=== PATIENT | male | born 1950 | race Caucasian/White ===

== ENCOUNTER 2017-02-05 07:36 | Emergency (ER) | payer SELFPAY ==
[~2017-02-05] VITALS: Ht 180.3 cm; Wt 80.3 kg
[~2017-02-05 07:36] MED LIST: ASPI325T47 PO
[2017-02-05 08:40] VITALS: BP 165/84
== END 2017-02-05 09:54 | disposition home or self-care (01) ==
LOC: ER 07:36
DX: I10 Essential (primary) hypertension (principal); E78.5 Hyperlipidemia, unspecified; F17.210 Nicotine dependence, cigarettes, uncomplicated; F12.10 Cannabis abuse, uncomplicated; Z86.73 Personal history of transient ischemic attack (TIA), and cerebral infarction without residual deficits
CPT/HCPCS: 73630

== ENCOUNTER 2018-08-02 13:34 | Emergency (ER) | payer OTHER ==
[~2018-08-02] VITALS: Ht 180.3 cm; Wt 81.6 kg
[~2018-08-02 13:34] MED LIST changes: +ASPI-123 PO; -ASPI325T47 PO
[2018-08-02] MEDS ORDERED: cloNIDine HCL 0.1 MG TAB ONE (14:00)
[2018-08-02] MEDS ORDERED: cloNIDine HCL 0.1 MG TAB PO ONE (14:15)
[2018-08-02 14:48] VITALS: BP 176/84
== END 2018-08-02 14:51 | disposition home or self-care (01) ==
LOC: EDBD 13:34 → ER 13:34
DX: S51.812A Laceration without foreign body of left forearm, initial encounter (principal); I10 Essential (primary) hypertension; E78.5 Hyperlipidemia, unspecified; F17.210 Nicotine dependence, cigarettes, uncomplicated; F12.90 Cannabis use, unspecified, uncomplicated; Z86.73 Personal history of transient ischemic attack (TIA), and cerebral infarction without residual deficits; Z79.82 Long term (current) use of aspirin; Y07.02 Wife, perpetrator of maltreatment and neglect; Y93.89 Activity, other specified; Y99.8 Other external cause status; Y92.89 Other specified places as the place of occurrence of the external cause

== ENCOUNTER 2019-06-01 11:13 | Inpatient (IN) | payer OTHER ==
[~2019-06-01] VITALS: Ht 180.3 cm; Wt 56.1 kg
[2019-06-01] MEDS ORDERED: SODIUM CHLORIDE 0.9% 1,000 ML IVB ONE (11:34)
[2019-06-01 12:08] LABS: Basophils # (auto) 0 10 ^3/uL (0-0.2); Basophils % (auto) 0.4 % (0.0-2.0); Eosinophils # (auto) 0 10 ^3/uL (0-0.8); Eosinophils % (auto) 0.2 % (0.0-7.0); Hematocrit 44.2 % (41.0-53.0); Hemoglobin 15.2 g/dL (13.5-17.5); Lymphocytes % (auto) 9.3 % (10.0-50.0); Mean Corpuscular Hemoglobin 30.8 pg (28.0-32.0); Mean Corpuscular Hgb Conc. 34.3 g/dL (32.0-36.0); Mean Corpuscular Volume 89.6 fL (80.0-100.0); Monocytes % (auto) 8.9 % (0.0-12.0); Neutrophils % (auto) 81.2 % (37.0-80.0); Platelet Count (auto) 161 10^3/uL (140-450); Red Blood Cells 4.93 10^6/uL (4.5-5.90); Red Cell Distribution Width 14.2 % (11.8-14.3); White Blood Cell 11.1 10^3/uL (4.4-10.8)
[2019-06-01 12:29] LABS: Albumin 3.9 g/dL (3.4-5.0); Anion Gap 7 (5-15); Blood Urea Nitrogen 17 mg/dL (7-18); Calcium 8.8 mg/dL (8.5-10.1); Carbon Dioxide 24 mmol/L (21-32); Chloride 108 mmol/L (98-107); Glucose 107 mg/dL (74-106); Magnesium 2.1 mg/dL (1.6-2.6); Potassium 4.1 mmol/L (3.5-5.1); Sodium 139 mmol/L (136-145)
[2019-06-01 12:33] LABS: Alanine Aminotransferase 126 U/L (16-61); Alkaline Phosphatase 69 U/L (45-117); Aspartate Aminotransferase 135 U/L (15-37); BUN/Creatinine Ratio 13.5; Bilirubin, Total 0.8 mg/dL (0.2-1.0); GFR African American 73 mL/min; GFR Non-African American 60 mL/min; Total Protein 7.1 g/dL (6.4-8.2)
[2019-06-01 12:37] LABS: Blood Alcohol < 3.0 mg/dL (0-5)
[2019-06-01] MEDS ORDERED: THIAMINE 100mg/ml INJ (200mg/2ml VIAL) IV ONE (13:15)
[2019-06-01 13:40] LABS: INR 1.05 (0.9-1.15); Partial Thromboplastin Time 25.4 sec (23.64-32.05)
[2019-06-01] MEDS ORDERED: LACTULOSE 20Gm/30ML SOLN PO PRN (14:00)
[2019-06-01] MEDS ORDERED: MORPHINE SULF INJ 2 MG/ML SYRINGE 1ML IV PRN (14:00)
[2019-06-01] MEDS ORDERED: ACETAMINOPHEN 500 MG TAB PO PRN (14:00)
[2019-06-01] MEDS ORDERED: ALBUTEROL SULF 2.5 MG/0.5ML(0.5%) NEB SOLN NEB PRN (14:00)
[2019-06-01] MEDS ORDERED: PROMETHAZINE HCL 25 MG/ML 1ML IV PRN (14:00)
[2019-06-01] MEDS ORDERED: NITROGLYCERIN 0.4 MG SL TAB SL PRN (14:00)
[2019-06-01 14:04] LABS: Alcohol, Urine < 3.0 mg/dL (0-5); Amphetamine Screen, Urine NEGATIVE (NEGATIVE); Barbiturate Scree,Urine NEGATIVE (NEGATIVE); Benzodiazephine Screen, Urine NEGATIVE (NEGATIVE); Cocaine Screen, Urine NEGATIVE (NEGATIVE); Opiate Scree,Urine NEGATIVE (NEGATIVE); Phencyclidine Screen, Urine NEGATIVE (NEGATIVE)
[2019-06-01 14:08] LABS: Cannabinoid Screen, Urine POSITIVE (NEGATIVE)
[2019-06-01] MEDS: SODIUM CHLORIDE 0.9% 1,000 ML IV SCH ×2 (14:21→23:58)
[2019-06-01] MEDS: MORPHINE SULF INJ 2 MG/ML SYRINGE 1ML IV PRN ×2 (14:25→18:35)
[2019-06-01] MEDS: traMADol HCL 50 MG TAB PO PRN (17:39)
[2019-06-01] MEDS ORDERED: LISI40TA PO (17:48)
[2019-06-01] MEDS ORDERED: METO-158 PO (17:48)
[2019-06-01] MEDS ORDERED: PRAV20TA3 GT (17:48)
[2019-06-01] MEDS ORDERED: CLOP75TA41 PO (17:48)
[2019-06-01] MEDS ORDERED: CYAN1TAB14 PO (17:48)
[2019-06-01 18:09] LABS: Hematocrit 43.9 % (41.0-53.0); Hemoglobin 15.1 g/dL (13.5-17.5)
[2019-06-01] MEDS ORDERED: LABETALOL HCL 5 MG/ML 4ML SYRINGE IV PRN (18:45)
[2019-06-01] MEDS ORDERED: LABETALOL HCL 5 MG/ML 4ML SYRINGE IV ONE (18:45)
[2019-06-01] MEDS ORDERED: hydrALAZINE HCL 20 MG/ML VL IV ONE (18:45)
[2019-06-01] MEDS ORDERED: LABETALOL HCL 5 MG/ML ML 20ML VIAL IV PRN (19:45)
[2019-06-01] MEDS: HYDROmorphone HCL 2 MG/ML VL IV PRN (20:32)
[2019-06-01 20:44] LABS: Hematocrit 42.1 % (41.0-53.0); Hemoglobin 14.5 g/dL (13.5-17.5)
[2019-06-01] MEDS: FAMOTIDINE 20 MG TAB PO SCH (21:25)
[2019-06-01] MEDS: TEMAZEPAM 15 MG CAP PO PRN (21:26)
[2019-06-01 22:00] VITALS: BP 150/94
[2019-06-02] VITALS (7 sets, daily range): BP systolic 129–161; BP diastolic 55–94
[2019-06-02 01:56] LABS: Hematocrit 42.9 % (41.0-53.0); Hemoglobin 14.2 g/dL (13.5-17.5)
[2019-06-02] MEDS: HYDROmorphone HCL 2 MG/ML VL IV PRN ×4 (04:39→21:18)
[2019-06-02] MEDS: FAMOTIDINE 20 MG TAB PO SCH ×2 (09:27→21:18)
[2019-06-02] MEDS: SODIUM CHLORIDE 0.9% 1,000 ML IV SCH ×2 (09:58→21:17)
[2019-06-02] MEDS: hydrALAZINE HCL 20 MG/ML VL IV PRN (18:47)
[2019-06-02] MEDS: TEMAZEPAM 15 MG CAP PO PRN (21:18)
[2019-06-03] MEDS: hydrALAZINE HCL 20 MG/ML VL IV PRN (05:10)
[2019-06-03] MEDS: traMADol HCL 50 MG TAB PO PRN (05:10)
[2019-06-03] MEDS: SODIUM CHLORIDE 0.9% 1,000 ML IV SCH ×2 (05:11→16:04)
[2019-06-03 05:42] VITALS: BP 157/81
[2019-06-03 06:15] VITALS: BP 142/77
[2019-06-03 06:49] LABS: Basophils # (auto) 0.1 10 ^3/uL (0-0.2); Basophils % (auto) 0.7 % (0.0-2.0); Eosinophils # (auto) 0.1 10 ^3/uL (0-0.8); Eosinophils % (auto) 1.5 % (0.0-7.0); Hematocrit 42.1 % (41.0-53.0); Hemoglobin 14.4 g/dL (13.5-17.5); Lymphocytes # (auto) 1.5 10 ^3/uL (0.4-5.4); Lymphocytes % (auto) 17.6 % (10.0-50.0); Mean Corpuscular Hgb Conc. 34.3 g/dL (32.0-36.0); Mean Corpuscular Volume 90.5 fL (80.0-100.0); Monocytes # (auto) 0.9 10 ^3/uL (0-1.3); Monocytes % (auto) 10.8 % (0.0-12.0); Neutrophils # (auto) 5.8 10 ^3/uL (1.6-8.6); Neutrophils % (auto) 69.4 % (37.0-80.0); Platelet Count (auto) 157 10^3/uL (140-450); Red Blood Cells 4.65 10^6/uL (4.5-5.90); Red Cell Distribution Width 14.2 % (11.8-14.3); White Blood Cell 8.4 10^3/uL (4.4-10.8)
[2019-06-03 07:04] LABS: Calcium 8.8 mg/dL (8.5-10.1); Potassium 3.7 mmol/L (3.5-5.1)
[2019-06-03 07:07] LABS: BUN/Creatinine Ratio 13.5; Phosphorus 2.6 mg/dL (2.5-4.90)
[2019-06-03 09:00] VITALS: BP 122/69
[2019-06-03] MEDS: FAMOTIDINE 20 MG TAB PO SCH ×2 (10:54→21:12)
[2019-06-03] MEDS: HYDROmorphone HCL 2 MG/ML VL IV PRN (10:55)
[2019-06-03 13:00] VITALS: BP 119/69
[2019-06-03] MEDS ORDERED: HYDROmorphone HCL 2 MG/ML VL IV ONE (13:15)
[2019-06-03] MEDS ORDERED: SODIUM CHLORIDE 0.9% 1,000 ML IV ONE (13:15)
[2019-06-03] MEDS ORDERED: DIGOXIN (250MCG/ML) 2 ML AMPULE IV ONE (14:30)
[2019-06-03] MEDS ORDERED: HYDROcodone-ACET 10/325MG TAB PO PRN (16:00)
[2019-06-03] MEDS ORDERED: ACETAMINOPHEN 500 MG TAB PO PRN (16:15)
[2019-06-03 17:04] VITALS: BP 126/68
[2019-06-03] MEDS: HYDROcodone-ACET 10/325MG TAB PO PRN (17:20)
[2019-06-03] MEDS ORDERED: LACTULOSE 20Gm/30ML SOLN PO PRN (18:30)
[2019-06-03] MEDS: TEMAZEPAM 15 MG CAP PO PRN (21:12)
[2019-06-03 21:25] VITALS: BP 129/73
[2019-06-04] VITALS (9 sets, daily range): BP systolic 113–162; BP diastolic 75–89
[2019-06-04] MEDS: SODIUM CHLORIDE 0.9% 1,000 ML IV SCH ×3 (02:28→21:58)
[2019-06-04] MEDS: HYDROmorphone HCL 2 MG/ML VL IV PRN (04:22)
[2019-06-04] MEDS: FAMOTIDINE 20 MG TAB PO SCH ×2 (09:13→21:54)
[2019-06-04] MEDS: HYDROcodone-ACET 10/325MG TAB PO PRN ×2 (09:20→18:43)
[2019-06-04] MEDS ORDERED: HYDROmorphone HCL 2 MG/ML VL IV PRN (11:00)
[2019-06-04] MEDS ORDERED: APIXABAN 5 MG TAB PO SCH (12:00)
[2019-06-04] MEDS: APIXABAN 5 MG TAB PO SCH ×2 (12:43→21:54)
[2019-06-04] MEDS: hydrALAZINE HCL 20 MG/ML VL IV PRN (21:56)
[2019-06-05] VITALS (7 sets, daily range): BP systolic 117–162; BP diastolic 61–89
[2019-06-05] MEDS: SODIUM CHLORIDE 0.9% 1,000 ML IV SCH ×2 (07:58→17:58)
[2019-06-05] MEDS: APIXABAN 5 MG TAB PO SCH (09:40)
[2019-06-05] MEDS: FAMOTIDINE 20 MG TAB PO SCH (09:40)
[2019-06-05] MEDS: HYDROcodone-ACET 10/325MG TAB PO PRN (09:53)
[2019-06-05] MEDS ORDERED: METOPROLOL TARTRATE 25 MG TAB PO SCH (10:00)
== END 2019-06-05 18:18 | disposition home health service (06) | DRG 199 ==
LOC: ER 11:13 → EDBD 11:13 → TELE 11:14 → TELE-EAST 17:09
PROVIDERS: ADMIT Internal Medicine; ATTEND Internal Medicine
DX: J93.9 Pneumothorax, unspecified (principal); J96.01 Acute respiratory failure with hypoxia; S22.41XA Multiple fractures of ribs, right side, initial encounter for closed fracture; J94.2 Hemothorax; R79.89 Other specified abnormal findings of blood chemistry; J44.9 Chronic obstructive pulmonary disease, unspecified; F10.20 Alcohol dependence, uncomplicated; I48.0 Paroxysmal atrial fibrillation; W18.39XA Other fall on same level, initial encounter; Y93.89 Activity, other specified; Y92.89 Other specified places as the place of occurrence of the external cause; Y99.8 Other external cause status
CPT/HCPCS: 36415; 70450; 70480; 70486; 71045; 71250; 72125; 76705; 80048; 80053; 80307; 80320; 83735; 84100; 85014; 85018; 85025; 85610; 85730; 93306; 96374; 97116; 97163; 97530; 99291; G0378

== ENCOUNTER 2022-01-07 07:23 | Inpatient (IN) | payer OTHER ==
[~2022-01-07] VITALS: Ht 185.4 cm; Wt 89.3 kg
[~2022-01-07 07:23] MED LIST changes: -ASPI-123 PO; +CYAN1TAB14 PO; +LISI40TA11 PO; +PRAV20TA3 GT
[2022-01-07] MEDS ORDERED: IOHEXOL 350 MG/ML 100ML IJ ONE (07:44)
[2022-01-07 08:31] LABS: Basophils # (auto) 0.1 10 ^3/uL (0-0.2); Basophils % (auto) 0.8 % (0.0-2.0); Eosinophils # (auto) 0.3 10 ^3/uL (0-0.8); Eosinophils % (auto) 4.1 % (0.0-7.0); Hematocrit 50.8 % (41.0-53.0); Hemoglobin 16.9 g/dL (13.5-17.5); Lymphocytes % (auto) 29.4 % (10.0-50.0); Mean Corpuscular Hemoglobin 31.4 pg (28.0-32.0); Mean Corpuscular Hgb Conc. 33.3 g/dL (32.0-36.0); Mean Corpuscular Volume 94.5 fL (80.0-100.0); Monocytes # (auto) 0.6 10 ^3/uL (0-1.3); Monocytes % (auto) 8.6 % (0.0-12.0); Neutrophils # (auto) 3.9 10 ^3/uL (1.6-8.6); Neutrophils % (auto) 57.1 % (37.0-80.0); Nucleated Red Blood Cells % 0.1 %; Red Blood Cells 5.38 10^6/uL (4.5-5.90); White Blood Cell 6.8 10^3/uL (4.4-10.8)
[2022-01-07 08:47] LABS: INR 0.96 (0.9-1.15); Partial Thromboplastin Time 25.4 sec (24.6-33.4)
[2022-01-07] MEDS ORDERED: LISINOPRIL 20 MG TAB PO ONE ×2 (09:45)
[2022-01-07] MEDS ORDERED: ASPirin 81 mg TAB PO ONE (09:45)
[2022-01-07 10:07] LABS: Albumin 3.8 g/dL (3.4-5.0); Calcium 8.6 mg/dL (8.5-10.1); Magnesium 2.3 mg/dL (1.6-2.6); Potassium 4.5 mmol/L (3.5-5.1)
[2022-01-07 10:10] LABS: BUN/Creatinine Ratio 11.8; Bilirubin, Total 0.5 mg/dL (0.2-1.0); Total Protein 6.4 g/dL (6.4-8.2)
[2022-01-07 10:30] LABS: Urine Bacteria NONE SEEN /hpf (None Seen); Urine Blood TRACE /uL (Negative); Urine Mucus FEW (None Seen); Urine WBC 2 /hpf (0 - 3)
[2022-01-07] MEDS ORDERED: ONDANSETRON HCL 4 MG/2 ML VIAL IV PRN (10:30)
[2022-01-07] MEDS ORDERED: HYDROmorphone HCL 2 MG/ML VL/or syr IV PRN (10:30)
[2022-01-07] MEDS ORDERED: ACETAMINOPHEN 325 MG TAB PO PRN (10:30)
[2022-01-07] MEDS ORDERED: DOCUSATE SOD 100 MG CAP PO PRN (10:30)
[2022-01-07] MEDS ORDERED: HYDROcodone-ACET 5/325MG TAB PO PRN (10:30)
[2022-01-07 10:45] LABS: Urine Specific Gravity > 1.050 (1.001-1.035)
[2022-01-07 11:10] LABS: Cholesterol 195 mg/dL (< 200); HDL Cholesterol 64 mg/dL (40-59); LDL Cholesterol 117 mg/dL (< 100); Triglycerides 113 mg/dL (< 150)
[2022-01-07] MEDS ORDERED: ATORVASTATIN 20 MG TAB PO ONE (11:15)
[2022-01-07] MEDS ORDERED: PRAVASTATIN SODIUM 20 MG TAB PO SCH (22:00)
[2022-01-07 22:41] VITALS: BP 165/96
[2022-01-07] MEDS: hydrALAZINE HCL 20 MG/ML VL IV PRN (22:43)
[2022-01-07] MEDS: APIXABAN 5 MG TAB PO SCH (22:43)
[2022-01-07 22:53] VITALS: BP 165/96
[2022-01-08] MEDS: hydrALAZINE HCL 20 MG/ML VL IV PRN (04:57)
[2022-01-08 05:00] VITALS: BP 175/84
[2022-01-08 09:00] VITALS: BP 124/64
[2022-01-08] MEDS: APIXABAN 5 MG TAB PO SCH ×2 (09:40→21:00)
[2022-01-08 17:00] VITALS: BP 133/76
[2022-01-08] MEDS ORDERED: LORazepam 2MG/ML-1ML VIAL IV PRN (17:15)
[2022-01-08] MEDS: ATORVASTATIN 20 MG TAB PO SCH (21:00)
[2022-01-08 22:00] VITALS: BP 140/84
[2022-01-09 05:00] VITALS: BP 142/87
[2022-01-09 08:00] VITALS: BP 175/84
[2022-01-09 08:39] VITALS: BP 130/57
[2022-01-09] MEDS: APIXABAN 5 MG TAB PO SCH (08:47)
[2022-01-09] MEDS ORDERED: hydrALAZINE HCL 20 MG/ML VL IV PRN (10:00)
[2022-01-09] MEDS ORDERED: NICOTINE 14 MG/24HR TOPICAL PATCH TD ONE (10:00)
[2022-01-09] MEDS: LISINOPRIL 10 MG TAB PO SCH (12:28)
[2022-01-09] MEDS: NICOTINE 14 MG/24HR TOPICAL PATCH TD SCH (12:28)
[2022-01-09 13:00] VITALS: BP 146/93
[2022-01-09 16:59] VITALS: BP 119/79
[2022-01-09] MEDS: ATORVASTATIN 20 MG TAB PO SCH (21:36)
[2022-01-09] MEDS: ENOXAPARIN SOD 100 MG/1 ML SYRINGE SC SCH (21:36)
[2022-01-09 22:00] VITALS: BP 107/54
[2022-01-09] MEDS: HALOPERIDOL 1 MG TAB PO SCH (22:00)
[2022-01-10 05:00] VITALS: BP 126/88
[2022-01-10] MEDS: LISINOPRIL 10 MG TAB PO SCH (09:01)
[2022-01-10] MEDS: HALOPERIDOL 1 MG TAB PO SCH ×2 (09:02→21:05)
[2022-01-10] MEDS: ENOXAPARIN SOD 100 MG/1 ML SYRINGE SC SCH ×2 (09:06→21:05)
[2022-01-10] MEDS: NICOTINE 14 MG/24HR TOPICAL PATCH TD SCH (09:06)
[2022-01-10 09:20] VITALS: BP 117/69
[2022-01-10 13:00] VITALS: BP 160/88
[2022-01-10 14:15] LABS: Basophils # (auto) 0 10 ^3/uL (0-0.2); Basophils % (auto) 0.6 % (0.0-2.0); Eosinophils # (auto) 0.3 10 ^3/uL (0-0.8); Eosinophils % (auto) 4.3 % (0.0-7.0); Hemoglobin 16.6 g/dL (13.5-17.5); Lymphocytes # (auto) 1.8 10 ^3/uL (0.4-5.4); Lymphocytes % (auto) 25.2 % (10.0-50.0); Mean Corpuscular Hemoglobin 31.8 pg (28.0-32.0); Mean Corpuscular Hgb Conc. 33.8 g/dL (32.0-36.0); Mean Corpuscular Volume 94.1 fL (80.0-100.0); Monocytes # (auto) 0.5 10 ^3/uL (0-1.3); Monocytes % (auto) 7.6 % (0.0-12.0); Neutrophils # (auto) 4.3 10 ^3/uL (1.6-8.6); Neutrophils % (auto) 62.3 % (37.0-80.0); Red Blood Cells 5.21 10^6/uL (4.5-5.90); Red Cell Distribution Width 14.1 % (11.8-14.3)
[2022-01-10 14:30] LABS: INR 1.09 (0.9-1.15)
[2022-01-10 17:24] VITALS: BP 131/99
[2022-01-10] MEDS: ATORVASTATIN 20 MG TAB PO SCH (20:59)
[2022-01-10 22:00] VITALS: BP 131/74
[2022-01-11] VITALS (8 sets, daily range): BP systolic 119–151; BP diastolic 64–88
[2022-01-11 07:31] LABS: Potassium 4.9 mmol/L (3.5-5.1)
[2022-01-11] MEDS ORDERED: MIDAZOLAM HCL 2MG/2ML 2ml VIAL (1mg/ml) IV ONE (08:45)
[2022-01-11] MEDS ORDERED: fentaNYL CITRATE 100 MCG/2 ML VL IV ONE (08:45)
[2022-01-11] MEDS ORDERED: LIDOCAINE VISCOUS 2% 15ML UD PO ONE (08:45)
[2022-01-11] MEDS ORDERED: diphenhdrAMINE HCL 50 MG/1 ML VL IV ONE (08:45)
[2022-01-11] MEDS: HALOPERIDOL 1 MG TAB PO SCH (11:03)
[2022-01-11] MEDS: LISINOPRIL 10 MG TAB PO SCH (11:05)
[2022-01-11] MEDS: NICOTINE 14 MG/24HR TOPICAL PATCH TD SCH (11:14)
[2022-01-11] MEDS: ENOXAPARIN SOD 100 MG/1 ML SYRINGE SC SCH (11:15)
[2022-01-11] MEDS ORDERED: ATOR20TA50 PO (14:39)
[2022-01-11] MEDS ORDERED: APIX5TAB PO (16:40)
[2022-01-13] MEDS ORDERED: TRAM-297 PO (12:01)
== END 2022-01-11 18:10 | disposition home or self-care (01) | DRG 65 ==
LOC: ER 07:23 → TELE 10:30 → TELE-WESTW 22:11
PROVIDERS: ADMIT Internal Medicine; ATTEND Internal Medicine
PROC: B24BZZ4 Ultrasonography of Heart with Aorta, Transesophageal (ICD-10-PCS; principal; 2022-01-11)
DX: I63.9 Cerebral infarction, unspecified (principal); G81.91 Hemiplegia, unspecified affecting right dominant side; I16.0 Hypertensive urgency; E78.5 Hyperlipidemia, unspecified; Z20.822 Contact with and (suspected) exposure to COVID-19; F17.210 Nicotine dependence, cigarettes, uncomplicated; F32.A Depression, unspecified; H91.90 Unspecified hearing loss, unspecified ear; I10 Essential (primary) hypertension; R47.01 Aphasia; R29.705 NIHSS score 5; Z79.01 Long term (current) use of anticoagulants; Z82.5 Family history of asthma and other chronic lower respiratory diseases
CPT/HCPCS: 36415; 70470; 70496; 70551; 71045; 80048; 80053; 80061; 81001; 83036; 83735; 83880; 84100; 84443; 84484; 85025; 85610; 85730; 86850; 86900; 86901; 87426; 93005; 93306; 93312; 93886; 96374; 99152; 99291; G0378; J2250

== ENCOUNTER → 2022-01-13 | Emergency (ER) | payer OTHER ==
[~2022-01-13] VITALS: Ht 180.3 cm; Wt 82.0 kg
[~2022-01-13] MED LIST changes: +APIX5TAB PO; +ATOR20TA50 PO; -PRAV20TA3 GT; +TRAM-297 PO
[2022-01-13 15:30] VITALS: BP 166/90
== END | disposition home or self-care (01) ==
LOC: ER 10:16
DX: S82.891A Other fracture of right lower leg, initial encounter for closed fracture (principal); F17.210 Nicotine dependence, cigarettes, uncomplicated; F12.90 Cannabis use, unspecified, uncomplicated; I10 Essential (primary) hypertension; Z86.73 Personal history of transient ischemic attack (TIA), and cerebral infarction without residual deficits; Z98.890 Other specified postprocedural states; W17.89XA Other fall from one level to another, initial encounter; Y93.89 Activity, other specified; Y92.89 Other specified places as the place of occurrence of the external cause; Y99.8 Other external cause status
CPT/HCPCS: 29515; 73610

== ENCOUNTER 2022-01-14 01:37 | Inpatient (IN) | payer OTHER ==
[~2022-01-14] VITALS: Ht 182.9 cm; Wt 76.2 kg
[2022-01-14 02:26] LABS: Basophils # (auto) 0.1 10 ^3/uL (0-0.2); Eosinophils # (auto) 0.3 10 ^3/uL (0-0.8); Eosinophils % (auto) 3.3 % (0.0-7.0); Hematocrit 42.9 % (41.0-53.0); Hemoglobin 14.5 g/dL (13.5-17.5); Lymphocytes # (auto) 1.4 10 ^3/uL (0.4-5.4); Lymphocytes % (auto) 16.1 % (10.0-50.0); Mean Corpuscular Hemoglobin 31.7 pg (28.0-32.0); Mean Corpuscular Hgb Conc. 33.7 g/dL (32.0-36.0); Mean Corpuscular Volume 94.1 fL (80.0-100.0); Monocytes # (auto) 0.9 10 ^3/uL (0-1.3); Monocytes % (auto) 10.3 % (0.0-12.0); Neutrophils # (auto) 6.1 10 ^3/uL (1.6-8.6); Neutrophils % (auto) 69.3 % (37.0-80.0); Nucleated Red Blood Cells % 0.1 %; Red Blood Cells 4.56 10^6/uL (4.5-5.90); White Blood Cell 8.8 10^3/uL (4.4-10.8)
[2022-01-14 02:45] LABS: Albumin 3.7 g/dL (3.4-5.0); Calcium 8.8 mg/dL (8.5-10.1); Potassium 4.2 mmol/L (3.5-5.1)
[2022-01-14 02:48] LABS: Bilirubin, Total 0.5 mg/dL (0.2-1.0); Total Protein 6.3 g/dL (6.4-8.2)
[2022-01-14 05:21] LABS: Urine Bacteria NONE SEEN /hpf (None Seen); Urine Blood 3+ /uL (Negative); Urine Budding Yeast FEW /hpf (None Seen); Urine Mucus FEW (None Seen); Urine Specific Gravity 1.025 (1.001-1.035); Urine WBC 39 /hpf (0 - 3)
[2022-01-14] MEDS ORDERED: ACETAMINOPHEN 325 MG TAB PO PRN (06:15)
[2022-01-14] MEDS ORDERED: hydrALAZINE HCL 20 MG/ML VL IV PRN (06:15)
[2022-01-14] MEDS ORDERED: ONDANSETRON HCL 4 MG/2 ML VIAL IV PRN (06:15)
[2022-01-14] MEDS ORDERED: SODIUM CHLORIDE 0.9% 1,000 ML IV SCH (06:15)
[2022-01-14] MEDS ORDERED: DOCUSATE SOD 100 MG CAP PO PRN (06:15)
[2022-01-14] MEDS ORDERED: HYDROcodone-ACET 5/325MG TAB PO PRN (06:15)
[2022-01-14] MEDS ORDERED: NITROGLYCERIN 0.4 MG SL TAB SL PRN (06:45)
[2022-01-14] MEDS ORDERED: MORPHINE SULFATE INJ 2 MG/ml SYRG IV PRN (06:45)
[2022-01-14 06:51] LABS: Basophils # (auto) 0.1 10 ^3/uL (0-0.2); Basophils % (auto) 0.7 % (0.0-2.0); Eosinophils # (auto) 0.2 10 ^3/uL (0-0.8); Eosinophils % (auto) 2.8 % (0.0-7.0); Hemoglobin 15.2 g/dL (13.5-17.5); Lymphocytes # (auto) 1.3 10 ^3/uL (0.4-5.4); Lymphocytes % (auto) 15.8 % (10.0-50.0); Mean Corpuscular Hgb Conc. 34.5 g/dL (32.0-36.0); Mean Corpuscular Volume 92.8 fL (80.0-100.0); Monocytes % (auto) 11.5 % (0.0-12.0); Neutrophils # (auto) 5.9 10 ^3/uL (1.6-8.6); Neutrophils % (auto) 69.2 % (37.0-80.0); Nucleated Red Blood Cells % 0.1 %; Red Blood Cells 4.74 10^6/uL (4.5-5.90); Red Cell Distribution Width 13.9 % (11.8-14.3); White Blood Cell 8.5 10^3/uL (4.4-10.8)
[2022-01-14 07:04] LABS: Alcohol, Urine 3.8 mg/dL (0-10); Amphetamine Screen, Urine NEGATIVE (NEGATIVE); Barbiturate Scree,Urine NEGATIVE (NEGATIVE); Benzodiazephine Screen, Urine NEGATIVE (NEGATIVE); Cocaine Screen, Urine NEGATIVE (NEGATIVE); Opiate Scree,Urine NEGATIVE (NEGATIVE); Phencyclidine Screen, Urine NEGATIVE (NEGATIVE)
[2022-01-14 07:05] LABS: Cannabinoid Screen, Urine NEGATIVE (NEGATIVE)
[2022-01-14 07:14] LABS: Calcium 8.8 mg/dL (8.5-10.1); Potassium 3.9 mmol/L (3.5-5.1)
[2022-01-14 07:20] LABS: Albumin 3.5 g/dL (3.4-5.0); BUN/Creatinine Ratio 16.4; Bilirubin, Total 0.8 mg/dL (0.2-1.0); Total Protein 6.4 g/dL (6.4-8.2)
[2022-01-14] MEDS: cefTRIAXone 1GM/50ML D5W 50 ML IV SCH (09:26)
[2022-01-14] MEDS ORDERED: amLODIPine BESYLATE 5 MG TAB PO SCH (10:00)
[2022-01-14] MEDS ORDERED: FAMOTIDINE (10MG/ML) 2ML VL IV SCH (10:00)
[2022-01-14] MEDS: ASPirin 81 mg TAB PO SCH (10:36)
[2022-01-14] MEDS ORDERED: CLOPIDOGREL BISULFATE 75 MG TAB PO ONE (14:30)
[2022-01-14] MEDS ORDERED: ATORVASTATIN 20 MG TAB PO SCH (22:00)
[2022-01-14] MEDS: APIXABAN 5 MG TAB PO SCH (22:42)
[2022-01-14] MEDS: ATORVASTATIN 20 MG TAB PO SCH (22:48)
[2022-01-15 06:06] LABS: RPR Non Reactive (Non Reactive)
[2022-01-15 07:54] LABS: Basophils # (auto) 0 10 ^3/uL (0-0.2); Basophils % (auto) 0.7 % (0.0-2.0); Eosinophils # (auto) 0.2 10 ^3/uL (0-0.8); Eosinophils % (auto) 2.7 % (0.0-7.0); Hematocrit 43.4 % (41.0-53.0); Hemoglobin 14.7 g/dL (13.5-17.5); Lymphocytes # (auto) 1.3 10 ^3/uL (0.4-5.4); Mean Corpuscular Hemoglobin 31.7 pg (28.0-32.0); Mean Corpuscular Hgb Conc. 33.9 g/dL (32.0-36.0); Mean Corpuscular Volume 93.5 fL (80.0-100.0); Monocytes # (auto) 0.8 10 ^3/uL (0-1.3); Neutrophils # (auto) 5.1 10 ^3/uL (1.6-8.6); Neutrophils % (auto) 68.6 % (37.0-80.0); Red Blood Cells 4.65 10^6/uL (4.5-5.90); Red Cell Distribution Width 13.8 % (11.8-14.3); White Blood Cell 7.4 10^3/uL (4.4-10.8)
[2022-01-15 08:20] LABS: Albumin 3.5 g/dL (3.4-5.0); Calcium 8.9 mg/dL (8.5-10.1); Potassium 4.2 mmol/L (3.5-5.1)
[2022-01-15 08:24] LABS: BUN/Creatinine Ratio 14.7; Bilirubin, Total 1.1 mg/dL (0.2-1.0); Total Protein 6.7 g/dL (6.4-8.2)
[2022-01-15] MEDS: cefTRIAXone 1GM/50ML D5W 50 ML IV SCH (09:22)
[2022-01-15] MEDS ORDERED: ENOXAPARIN SOD 40 MG/0.4 ML SYRINGE SC SCH (10:00)
[2022-01-15] MEDS ORDERED: CLOPIDOGREL BISULFATE 75 MG TAB PO SCH (10:00)
[2022-01-15] MEDS: ASPirin 81 mg TAB PO SCH (10:00)
[2022-01-15] MEDS: APIXABAN 5 MG TAB PO SCH ×2 (12:07→22:36)
[2022-01-15] MEDS: ATORVASTATIN 20 MG TAB PO SCH (22:36)
[2022-01-16] VITALS (8 sets, daily range): BP systolic 120–153; BP diastolic 69–94
[2022-01-16] MEDS: APIXABAN 5 MG TAB PO SCH ×2 (10:13→21:57)
[2022-01-16] MEDS: cefTRIAXone 1GM/50ML D5W 50 ML IV SCH (10:13)
[2022-01-16] MEDS: ASPirin 81 mg TAB PO SCH (10:13)
[2022-01-16] MEDS: ATORVASTATIN 20 MG TAB PO SCH (21:57)
[2022-01-16] MEDS ORDERED: traZODone HCL 50 MG TAB PO SCH (22:00)
[2022-01-17 05:00] VITALS: BP 142/86
[2022-01-17] MEDS: cefTRIAXone 1GM/50ML D5W 50 ML IV SCH (08:29)
[2022-01-17 08:30] VITALS: BP 133/87
[2022-01-17 08:34] VITALS: BP 133/87
[2022-01-17] MEDS: ASPirin 81 mg TAB PO SCH (09:11)
[2022-01-17] MEDS: APIXABAN 5 MG TAB PO SCH ×2 (09:11→21:15)
[2022-01-17 12:31] VITALS: BP 135/91
[2022-01-17 12:55] LABS: Free T4 (Free Thyroxine) 0.73 ng/dL (0.89-1.76)
[2022-01-17 12:56] LABS: Folate (Folic Acid) 5.35 ng/mL (5.38-24)
[2022-01-17 16:32] VITALS: BP 135/84
[2022-01-17] MEDS: ATORVASTATIN 20 MG TAB PO SCH (21:15)
[2022-01-17] MEDS: CIPROFLOXACIN HCL 500 MG TAB PO SCH (21:15)
[2022-01-17 22:00] VITALS: BP 120/76
[2022-01-17] MEDS ORDERED: LORazepam 2MG/ML-1ML VIAL IV PRN (22:45)
[2022-01-17 23:33] LABS: Folate (Folic Acid) 11.09 ng/mL (5.38-24)
[2022-01-17] MEDS ORDERED: CYANOCOBALAMIN (B-12) 1000 MCG/1 ML VIAL IM ONE (23:45)
[2022-01-18 05:00] VITALS: BP 113/71
[2022-01-18 07:18] LABS: Basophils # (auto) 0 10 ^3/uL (0-0.2); Basophils % (auto) 0.7 % (0.0-2.0); Eosinophils # (auto) 0.2 10 ^3/uL (0-0.8); Eosinophils % (auto) 2.4 % (0.0-7.0); Hematocrit 47.6 % (41.0-53.0); Hemoglobin 16.1 g/dL (13.5-17.5); Lymphocytes # (auto) 1.6 10 ^3/uL (0.4-5.4); Lymphocytes % (auto) 23.1 % (10.0-50.0); Mean Corpuscular Hemoglobin 31.6 pg (28.0-32.0); Mean Corpuscular Hgb Conc. 33.9 g/dL (32.0-36.0); Mean Corpuscular Volume 93.3 fL (80.0-100.0); Monocytes # (auto) 0.6 10 ^3/uL (0-1.3); Monocytes % (auto) 7.9 % (0.0-12.0); Neutrophils # (auto) 4.7 10 ^3/uL (1.6-8.6); Neutrophils % (auto) 65.9 % (37.0-80.0); Nucleated Red Blood Cells % 0.1 %; Red Cell Distribution Width 13.5 % (11.8-14.3); White Blood Cell 7.1 10^3/uL (4.4-10.8)
[2022-01-18 07:40] LABS: Albumin 3.6 g/dL (3.4-5.0); BUN/Creatinine Ratio 24.5; Calcium 9.4 mg/dL (8.5-10.1); Potassium 4.7 mmol/L (3.5-5.1)
[2022-01-18 07:43] LABS: Bilirubin, Total 0.7 mg/dL (0.2-1.0); Total Protein 6.8 g/dL (6.4-8.2)
[2022-01-18 08:00] VITALS: BP 112/73
[2022-01-18 09:00] VITALS: BP 112/73
[2022-01-18] MEDS: CYANOCOBALAMIN 500 MCG TAB PO SCH (12:31)
[2022-01-18] MEDS: CIPROFLOXACIN HCL 500 MG TAB PO SCH ×2 (12:31→21:51)
[2022-01-18] MEDS: ASPirin 81 mg TAB PO SCH (12:32)
[2022-01-18] MEDS: MULTIPLE VITAMIN TAB PO SCH (12:32)
[2022-01-18] MEDS: THIAMINE HCL 100 MG TAB PO SCH (12:32)
[2022-01-18] MEDS: APIXABAN 5 MG TAB PO SCH ×2 (12:32→21:51)
[2022-01-18] MEDS: FOLIC ACID 1 MG in D5W 5% 50 ML INJ SCH (13:35)
[2022-01-18 16:47] VITALS: BP 126/79
[2022-01-18] MEDS: ATORVASTATIN 20 MG TAB PO SCH (21:51)
[2022-01-18 22:00] VITALS: BP 137/74
[2022-01-19 05:00] VITALS: BP 111/71
[2022-01-19 09:00] VITALS: BP 126/79
[2022-01-19] MEDS: THIAMINE HCL 100 MG TAB PO SCH (10:34)
[2022-01-19] MEDS: CYANOCOBALAMIN 500 MCG TAB PO SCH (10:35)
[2022-01-19] MEDS: MULTIPLE VITAMIN TAB PO SCH (10:35)
[2022-01-19] MEDS: APIXABAN 5 MG TAB PO SCH ×2 (10:36→21:27)
[2022-01-19] MEDS: ASPirin 81 mg TAB PO SCH (10:36)
[2022-01-19] MEDS: CIPROFLOXACIN HCL 500 MG TAB PO SCH ×2 (10:49→21:28)
[2022-01-19] MEDS: FOLIC ACID 1 MG in D5W 5% 50 ML INJ SCH (10:54)
[2022-01-19 13:00] VITALS: BP 148/94
[2022-01-19 16:47] VITALS: BP 143/93
[2022-01-19] MEDS: ATORVASTATIN 20 MG TAB PO SCH (21:27)
[2022-01-20] MEDS: APIXABAN 5 MG TAB PO SCH ×2 (10:17→22:06)
[2022-01-20] MEDS: MULTIPLE VITAMIN TAB PO SCH (10:18)
[2022-01-20] MEDS: CYANOCOBALAMIN 500 MCG TAB PO SCH (10:18)
[2022-01-20] MEDS: ASPirin 81 mg TAB PO SCH (10:18)
[2022-01-20] MEDS: CIPROFLOXACIN HCL 500 MG TAB PO SCH ×2 (10:18→22:06)
[2022-01-20] MEDS: THIAMINE HCL 100 MG TAB PO SCH (10:18)
[2022-01-20 20:30] VITALS: BP 140/87
[2022-01-20] MEDS: ATORVASTATIN 20 MG TAB PO SCH (22:08)
[2022-01-20 22:30] VITALS: BP 140/87
[2022-01-21 05:00] VITALS: BP 136/85
[2022-01-21 07:30] VITALS: BP 124/73
[2022-01-21 09:00] VITALS: BP 120/73
[2022-01-21] MEDS: ASPirin 81 mg TAB PO SCH (09:41)
[2022-01-21] MEDS: CIPROFLOXACIN HCL 500 MG TAB PO SCH ×2 (09:42→22:29)
[2022-01-21] MEDS: APIXABAN 5 MG TAB PO SCH ×2 (09:43→22:29)
[2022-01-21] MEDS: MULTIPLE VITAMIN TAB PO SCH (09:44)
[2022-01-21] MEDS: THIAMINE HCL 100 MG TAB PO SCH (09:45)
[2022-01-21] MEDS: CYANOCOBALAMIN 500 MCG TAB PO SCH (09:45)
[2022-01-21 13:00] VITALS: BP 141/81
[2022-01-21 17:00] VITALS: BP 117/72
[2022-01-21 22:00] VITALS: BP 111/73
[2022-01-21] MEDS: ATORVASTATIN 20 MG TAB PO SCH (22:30)
[2022-01-22 05:00] VITALS: BP 142/92
[2022-01-22 09:00] VITALS: BP 110/66
[2022-01-22] MEDS: ASPirin 81 mg TAB PO SCH (10:36)
[2022-01-22] MEDS: MULTIPLE VITAMIN TAB PO SCH (10:37)
[2022-01-22] MEDS: THIAMINE HCL 100 MG TAB PO SCH (10:37)
[2022-01-22] MEDS: CYANOCOBALAMIN 500 MCG TAB PO SCH (10:37)
[2022-01-22] MEDS: APIXABAN 5 MG TAB PO SCH ×2 (10:38→22:18)
[2022-01-22] MEDS: CIPROFLOXACIN HCL 500 MG TAB PO SCH ×2 (10:41→22:19)
[2022-01-22 13:00] VITALS: BP 115/83
[2022-01-22 17:00] VITALS: BP 106/70
[2022-01-22] MEDS: ATORVASTATIN 20 MG TAB PO SCH (22:19)
[2022-01-22 22:24] VITALS: BP 132/79
[2022-01-23 04:48] VITALS: BP 136/79
[2022-01-23 08:30] VITALS: BP 129/69
[2022-01-23] MEDS: APIXABAN 5 MG TAB PO SCH ×2 (09:54→21:43)
[2022-01-23] MEDS: ASPirin 81 mg TAB PO SCH (09:54)
[2022-01-23] MEDS: MULTIPLE VITAMIN TAB PO SCH (09:54)
[2022-01-23] MEDS: CYANOCOBALAMIN 500 MCG TAB PO SCH (09:54)
[2022-01-23] MEDS: THIAMINE HCL 100 MG TAB PO SCH (09:54)
[2022-01-23] MEDS: CIPROFLOXACIN HCL 500 MG TAB PO SCH ×2 (09:55→21:42)
[2022-01-23 12:30] VITALS: BP 132/86
[2022-01-23 16:45] VITALS: BP 125/69
[2022-01-23] MEDS: ATORVASTATIN 20 MG TAB PO SCH (21:43)
[2022-01-23 22:00] VITALS: BP 103/69
[2022-01-23 23:43] VITALS: BP 103/69
== END 2022-01-24 01:17 | disposition short-term general hospital (02) | DRG 64 ==
LOC: EDUNIT# 01:37 → EDBD 01:37 → ER 01:44 → TELE 06:41 → TELE-EAST 01-16 02:31
PROVIDERS: ADMIT Nurse Practitioner Family; ATTEND Hospitalist
DX: I63.9 Cerebral infarction, unspecified (principal); G93.41 Metabolic encephalopathy; N39.0 Urinary tract infection, site not specified; R47.01 Aphasia; N28.9 Disorder of kidney and ureter, unspecified; I10 Essential (primary) hypertension; E78.5 Hyperlipidemia, unspecified; E53.8 Deficiency of other specified B group vitamins; F17.210 Nicotine dependence, cigarettes, uncomplicated; Z20.822 Contact with and (suspected) exposure to COVID-19; I65.23 Occlusion and stenosis of bilateral carotid arteries; H91.90 Unspecified hearing loss, unspecified ear; Z82.5 Family history of asthma and other chronic lower respiratory diseases; Z79.899 Other long term (current) drug therapy; Z79.01 Long term (current) use of anticoagulants; S82.61XD Displaced fracture of lateral malleolus of right fibula, subsequent encounter for closed fracture with routine healing; W18.39XD Other fall on same level, subsequent encounter
CPT/HCPCS: 36415; 70450; 70551; 71045; 80053; 80307; 80320; 81001; 82140; 82607; 82746; 83605; 83880; 84425; 84439; 84443; 84484; 85025; 86592; 87081; 87086; 87426; 93970; 95819; 96361; 96374; 97163; G0378; J0696; J3490; J7060